=== PATIENT | female | born 1955 | race Hispanic/Latino ===

== ENCOUNTER 2018-12-08 09:00 | Outpatient (RCR) | payer OTHER | END 2018-12-12 | LOC: PT 09:00 | PROVIDERS: ATTEND Specialist | DX: S93.401D Sprain of unspecified ligament of right ankle, subsequent encounter (principal); M25.571 Pain in right ankle and joints of right foot; M62.81 Muscle weakness (generalized); M25.671 Stiffness of right ankle, not elsewhere classified; R26.2 Difficulty in walking, not elsewhere classified ==

== ENCOUNTER 2018-12-22 08:55 | Outpatient (RCR) | payer OTHER | END 2019-01-12 | LOC: PT 08:55 | PROVIDERS: ATTEND Specialist | DX: S93.401A Sprain of unspecified ligament of right ankle, initial encounter (principal); M25.571 Pain in right ankle and joints of right foot; M25.671 Stiffness of right ankle, not elsewhere classified; M62.81 Muscle weakness (generalized); R26.2 Difficulty in walking, not elsewhere classified ==